=== PATIENT | female | born 1980 | race Caucasian/White ===

== ENCOUNTER 2023-01-18 18:53 | Emergency (ER) | payer SELFPAY ==
[2023-01-18 20:34] LABS: Basophils % (A) 0 %; Eosinophils % (A) 0 %; HCT 42.3 % (34.0-46.0); Hypochromasia Slight; Lymphocytes # (A) 1.2 k/uL (1.0-4.8); Lymphocytes % (A) 15 %; MCH 24.7 pg (25.0-35.0); MCHC 30.7 g/dL (31.0-37.0); MCV 80.2 fL (80.0-100.0); Mean Platelet Volume 7.3; Monocytes # (A) 0.3 k/uL (0-1.0); Monocytes % (A) 4 %; Neutrophils # (A) 6.6 k/uL (1.3-7.7); Neutrophils % (A) 80 %; Platelet Count 403 k/uL (150-450); RBC 5.27 m/uL (3.80-5.40); RDW 14.6 % (11.5-15.5); WBC 8.2 k/uL (3.8-10.6)
[2023-01-18 20:50] LABS: ALT 17 U/L (4-34); AST 23 U/L (14-36); African American GFR (CKD) >90 (>60 ml/min/1.73 sqM); Albumin 4.5 g/dL (3.5-5.0); Alkaline Phosphatase 66 U/L (38-126); Amylase 67 U/L (30-110); Anion Gap 11 mmol/L; Blood Urea Nitrogen 7 mg/dL (7-17); Carbon Dioxide 20 mmol/L (22-30); Chloride 105 mmol/L (98-107); Glucose 131 mg/dL (74-99); Lipase 154 U/L (23-300); Non-African American GFR(CKD) >90 (>60 ml/min/1.73 sqM); Potassium 4.2 mmol/L (3.5-5.1); Sodium 136 mmol/L (137-145); Total Bilirubin 0.4 mg/dL (0.2-1.3); Total Protein 8.1 g/dL (6.3-8.2)
[2023-01-18 20:54] LABS: Appearance,Urine Cloudy (Clear); Bacteria,Urine Few /hpf; Bilirubin,Urine Negative (Negative); Blood,Urine Negative (Negative); Color,Urine Light Yellow; Glucose,Urine (UA) Negative (Negative); Ketones,Urine 1+ (Negative); Leukocyte Esterase,Urine Large (Negative); Mucus,Urine Rare /hpf; Nitrite,Urine Negative (Negative); Protein,Urine Trace (Negative); RBC,Urine 4 /hpf (0-5); Specific Gravity,Urine 1.009 (1.001-1.035); Squamous Epithelial Cell,Urine 10 /hpf (0-4); Urobilinogen,Urine <2.0 mg/dL (<2.0); WBC,Urine 66 /hpf (0-5)
--- NOTE | 2023-01-18 21:59 | US ---
EXAMINATION TYPE: US abdomen complete DATE OF EXAM: 01/18/2023 COMPARISON: NONE CLINICAL INDICATION: Female, 42 years old with history of right abdominal pain; pain and nausea TECHNIQUE: Multiple sonographic images of the abdomen are obtained. FINDINGS: EXAM MEASUREMENTS: Liver Length: 17 cm Gallbladder Wall: 0.2 cm CBD: 0.4 cm Spleen: 10.1 cm Right Kidney: 10.9 x 4.5 x 4.3 cm Left Kidney: 10.4 x 4.1 x 5.4 cm PIPE SMOKING MACHINE OPERATOR NOTES: Pancreas: Obscured by bowel gas and mass. Liver: Increased attenuation. Hypoechoic lesion noted measuring 2.6 x 1.3 x 2.3 cm. With posterior a coustic enhancement, likely hepatic cyst. Gallbladder: No stones seen Evidence for sonographic Sutton's sign: No CBD: wnl Spleen: wnl Right Kidney: Moderate hydronephrosis. Left Kidney: Moderate hydronephrosis. Upper IVC: wnl Abd Aorta: wnl Large solid mass at the midline abdomen measuring 19.4 x 17.5 x 20 cm. Mass demonstrates areas of int ernal vascularity and heterogeneous echotexture. IMPRESSION: 1. Large midline abdominal soft tissue mass measuring up to 20 cm. Further evaluation with contrast-e nhanced CT abdomen/pelvis is recommended. 2. Bilateral moderate hydronephrosis, likely secondary to extrinsic compression from finding #1. 3. Hepatic steatosis.
[2023-01-18 23:44] VITALS: RESP 16
--- NOTE | 2023-01-18 23:54 | CT ---
EXAM: CT Abdomen and Pelvis With Intravenous Contrast CLINICAL HISTORY: ITS.REASON CT Reason: evaluate mass TECHNIQUE: Axial computed tomography images of the abdomen and pelvis with intravenous contrast. CTDI is 31.6 mGy and DLP is 1834.9 mGy-cm. This CT exam was performed using one or more of the following dose reduction techniques: automated exposure control, adjustment of the mA and/or kV according to patient size, and/or use of iterative reconstruction technique. COMPARISON: No relevant prior studies available. FINDINGS: Lung bases: Unremarkable. No mass. No consolidation. ABDOMEN: Liver: Several low densities in the liver measuring up to 2.7 cm consistent with simple cysts. Gallbladder and bile ducts: Unremarkable. No calcified stones. No ductal dilation. Pancreas: Unremarkable. No mass. No ductal dilation. Spleen: Unremarkable. No splenomegaly. Adrenals: Unremarkable. No mass. Kidneys and ureters: Massively enlarged uterus causes moderate bilateral hydronephrosis and hydroureter. Stomach and bowel: Small periumbilical hernia with small bowel protruding through the defect causing at least partial bowel obstruction. No mucosal thickening. PELVIS: Appendix: No findings to suggest acute appendicitis. Bladder: Unremarkable. No mass. Reproductive: Massive enlargement of the uterus measuring 30 cm craniocaudal by 15 cm transverse by 28 cm transverse with numerous large myometrial masses most likely representing uterine fibroids. ABDOMEN and PELVIS: Intraperitoneal space: Mild ascites. No free air. Bones/joints: No acute fracture. No dislocation. Soft tissues: See above. Vasculature: Unremarkable. No abdominal aortic aneurysm. Lymph nodes: Unremarkable. No enlarged lymph nodes. IMPRESSION: 1. Small periumbilical hernia with small bowel protruding through the defect causing at least partial bowel obstruction. 2. Massive enlargement of the uterus measuring 30 cm craniocaudal by 15 cm transverse by 28 cm transverse with numerous large myometrial masses most likely representing uterine fibroids and causes moderate bilateral hydronephrosis and hydroureter.
[2023-01-19] MEDS ORDERED: cefTRIAXone IN SWFI 1,000 MG/10 ML SYRINGE IVP STA (00:12)
[2023-01-19] MEDS ORDERED: MORPHINE SULFATE 4 MG/ML SYRINGE IV STA (00:12)
--- NOTE | 2023-01-19 00:23 | ED ---
Abdominal Pain HPI - General Chief Complaint: Abdominal Pain Stated Complaint: Abd Pain Time Seen by Provider: 01/18/23 19:58 Source: patient Mode of arrival: ambulatory Limitations: no limitations - History of Present Illness Initial Comments: This patient is a 42-year-old woman presenting with lower abdominal pain worse for past few hours however she has had intermittent episodes of pain previously. Pain sharp. She has not noted worsening or relieving factors. MD Complaint: abdominal pain -: hour(s) Location: LLQ, RLQ Radiation: none Migration to: no migration Severity: severe Quality: sharp Consistency: intermittent Improves With: nothing Worsens With: nothing Associated Symptoms: denies other symptoms - Related Data Previous Rx's Medication Instructions Recorded HYDROcodone/APAP 5-325MG [[place] 1 tab PO Q4HR PRN 3 Days #18 tab 01/19/23 5-325] Allergies Allergy/AdvReac Type Severity Reaction Status Date / Time No Known Allergies Allergy Verified 01/18/23 19:26 Review of Systems ROS Statement: Those systems with pertinent positive or pertinent negative responses have been documented in the HPI. ROS Other: All systems not noted in ROS Statement are negative. Constitutional: Denies: fever, chills Respiratory: Denies: cough, dyspnea Cardiovascular: Denies: chest pain, palpitations Gastrointestinal: Reports: abdominal pain. Denies: nausea, vomiting, diarrhea, constipation, melena, hematochezia Genitourinary: Denies: dysuria, frequency, hematuria Musculoskeletal: Denies: back pain Skin: Denies: rash Neurological: Denies: headache, weakness Past Medical History Past Medical History: No Reported History History of Any Multi-Drug Resistant Organisms: None Reported Past Surgical History: No Surgical Hx Reported Past Psychological History: Anxiety, Depression Smoking Status: Never smoker Past Alcohol Use History: None Reported Past Drug Use History: Marijuana General Exam Limitations: no limitations General appearance: alert, in no apparent distress Head exam: Present: atraumatic, normocephalic Eye exam: Present: normal appearance. Absent: scleral icterus, conjunctival injection Neck exam: Present: normal inspection Respiratory exam: Present: normal lung sounds bilaterally. Absent: respiratory distress, wheezes, rales, rhonchi, stridor Cardiovascular Exam: Present: regular rate, normal rhythm, normal heart sounds. Absent: systolic murmur, diastolic murmur, rubs, gallop GI/Abdominal exam: Present: soft, mass (The patient has palpable lower abdominal mass, palpation does reproduce patient's pain). Absent: distended, tenderness, guarding, rebound, rigid, pulsatile mass, hernia Extremities exam: Present: normal inspection, normal capillary refill. Absent: pedal edema, calf tenderness Back exam: Present: normal inspection. Absent: CVA tenderness (R), CVA tenderness (L) Neurological exam: Present: alert Skin exam: Present: warm, dry, intact, normal color. Absent: rash Course Vital Signs 01/18/23 01/18/23 01/18/23 19:21 20:20 23:43 Temperature 98.9 F Pulse Rate 108 H 101 H 94 Respiratory 16 18 16 Rate Blood Pressure 147/73 143/94 138/73 O2 Sat by Pulse 98 98 95 Oximetry 01/19/23 00:40 Temperature 97.8 F Pulse Rate 81 Respiratory 16 Rate Blood Pressure 130/78 O2 Sat by Pulse 97 Oximetry Medical Decision Making - Medical Decision Making The patient had CT of the abdomen and pelvis which I interpreted as showing la rge uterine mass. No free air or obstruction. Was pt. sent in by a medical professional or institution (, PA, HAND ORNAMENT MAKER, urgent care, hospital, or skilled nursing...) When possible be specific @ -[No] Did you speak to anyone other than the patient for history (EMS, parent, family, police, friend...)? What history was obtained from this source @ -[No] Did you review nursing and triage notes (agree or disagree)? Why? @ -[I reviewed and agree with nursing and triage notes] Were old charts reviewed (outside hosp., previous admission, EMS record, old EKG, old radiological studies, urgent care reports/EKG's, skilled nursing records)? Report findings @ -[No old charts were reviewed] Differential Diagnosis (chest pain, altered mental status, abdominal pain women, abdominal pain men, vaginal bleeding, weakness, fever, dyspnea, syncope, headache, dizziness, GI bleed, back pain, seizure, CVA, palpatations, mental health, musculoskeletal)? @ -[Differential Abdominal Pain Women: Appendicitis, Cholecystitis, diverticulosis, ischemic bowel, pancreatitis, hepatitis, UTI, gastroenteritis, AAA, incarcerated hernia, bowel obstruction, constipation, inflammatory bowel, hepatitis, peptic ulcer disease, splenic infa rction, perforated viscus, vulvitis, ovarian torsion, PID, kidney stone, placenta abruption, this is not meant to be an all-inclusive list EKG interpreted by me (3pts min.). @ -[ X-rays interpreted by me (1pt min.). @ -[None done] CT interpreted by me (1pt min.). @ -[As above U/S interpreted by me (1pt. min.). @ -[None done] What testing was considered but not performed or refused? (CT, X-rays, U/S, labs)? Why? @ -[None] What meds were considered but not given or refused? Why? @ -[None] Did you discuss the management of the patient with other professionals (professionals i.e. , PA, HAND ORNAMENT MAKER, lab, RT, psych nurse, social worker health services, director social service, teacher, ordnance corps officer, director of casework department)? Give summary @ -[I discussed the case with the on-call information engineer Was smoking cessation discussed for >3mins.? @ -[No] Was critical care preformed (if so, how long)? @ -[No] Were there social determinants of health that impacted care today? How? (Homelessness, low income, unemployed, alcoholism, drug addiction, transportation, low edu. Level, literacy, decrease access to med. care, retirement, rehab)? @ -[No] Was there de-escalation of care discussed even if they declined (Discuss DNR or withdrawal of care, Hospice)? DNR status @ -[No] What co-morbidities impacted this encounter? (DM, HTN, Smoking, COPD, CAD, Cancer, CVA, ARF, Chemo, Hep., AIDS, mental health diagnosis, sleep apnea, morbid obesity)? @ -[None] Was patient admitted / discharged? Hospital course, mention meds given and route, prescriptions, significant lab abnormalities, going to OR and other pertinent info. @ -[Patient is a 42-year-old woman here for acute abdominal pain, or further questioning reveals she had had previous episodes of pain. The exam reveals lower abdominal mass and the patient had first ultrasound interpreted by radiology and then computed tomography scan showing large uterine mass. I discussed the case with Dr. Joya, and he would like to have the patient call his office to establish a referral for care at [facility]. as the mass is too large for resection at this facility. Undiagnosed new problem with uncertain prognosis? @ -[No] Drug Therapy requiring intensive monitoring for toxicity (Heparin, Nitro, Insulin, Cardizem)? @ -[No] Were any procedures done? @ -[No] Diagnosis/symptom? @ -[Acute abdominal pain secondary to large uterine mass which is new diagnosis Acute, or Chronic, or Acute on Chronic? @ -[Acute Uncomplicated (without systemic symptoms) or Complicated (systemic symptoms)? @ -[Uncomplicated Side effects of treatment? @ -[No] Exacerbation, Progression, or Severe Exacerbation? @ -[No] Poses a threat to life or bodily function? How? (Chest pain, [place], [place], pneumonia, PE, COPD, DKA, ARF, appy, cholecystitis, CVA, Diverticulitis, Homicidal, Suicidal, threat to staff... and all critical care pts) @ -[No] - Lab Data Result diagrams: 01/18/23 20:20 01/18/23 20:20 Lab Results 01/18/23 01/18/23 01/18/23 Range/Units 20:20 20:20 20:20 WBC 8.2 (3.8-10.6) k/uL RBC 5.27 (3.80-5.40) m/uL Hgb 13.0 (11.4-16.0) gm/dL Hct 42.3 (34.0-46.0) % MCV 80.2 (80.0-100.0) fL MCH 24.7 L (25.0-35.0) pg MCHC 30.7 L (31.0-37.0) g/dL RDW 14.6 (11.5-15.5) % Plt Count 403 (150-450) k/uL MPV 7.3 Neutrophils % 80 % Lymphocytes % 15 % Monocytes % 4 % Eosinophils % 0 % Basophils % 0 % Neutrophils # 6.6 (1.3-7.7) k/uL Lymphocytes # 1.2 (1.0-4.8) k/uL Monocytes # 0.3 (0-1.0) k/uL Eosinophils # 0.0 (0-0.7) k/uL Basophils # 0.0 (0-0.2) k/uL Hypochromasia Slight Sodium 136 L (137-145) mmol/L Potassium 4.2 (3.5-5.1) mmol/L Chloride 105 (98-107) mmol/L Carbon Dioxide 20 L (22-30) mmol/L Anion Gap 11 mmol/L BUN 7 (7-17) mg/dL Creatinine 0.60 (0.52-1.04) mg/dL Est GFR (CKD-EPI)AfAm >90 (>60 ml/min/1.73 sqM) Est GFR (CKD-EPI)NonAf >90 (>60 ml/min/1.73 sqM) Glucose 131 H (74-99) mg/dL Calcium 9.0 (8.4-10.2) mg/dL Total Bilirubin 0.4 (0.2-1.3) mg/dL AST 23 (14-36) U/L ALT 17 (4-34) U/L Alkaline Phosphatase 66 (38-126) U/L Total Protein 8.1 (6.3-8.2) g/dL Albumin 4.5 (3.5-5.0) g/dL Amylase 67 (30-110) U/L Lipase 154 (23-300) U/L HCG, Qual Urine Color Urine Appearance (Clear) Urine pH (5.0-8.0) Ur Specific [place] (1.001-1.035) Urine Protein (Negative) Urine Glucose (UA) (Negative) Urine Ketones (Negative) Urine Blood (Negative) Urine Nitrite (Negative) Urine Bilirubin (Negative) Urine Urobilinogen (<2.0) mg/dL Ur Leukocyte Esterase (Negative) Urine RBC (0-5) /hpf Urine WBC (0-5) /hpf Urine WBC Clumps (None) /hpf Ur Squamous Epith Cells (0-4) /hpf Urine Bacteria (None) /hpf Urine Mucus (None) /hpf Urine HCG, Qual Not Detected (Not Detectd) 01/18/23 01/18/23 Range/Units 20:20 20:20 WBC (3.8-10.6) k/uL RBC (3.80-5.40) m/uL Hgb (11.4-16.0) gm/dL Hct (34.0-46.0) % MCV (80.0-100.0) fL MCH (25.0-35.0) pg MCHC (31.0-37.0) g/dL RDW (11.5-15.5) % Plt Count (150-450) k/uL MPV Neutrophils % % Lymphocytes % % Monocytes % % Eosinophils % % Basophils % % Neutrophils # (1.3-7.7) k/uL Lymphocytes # (1.0-4.8) k/uL Monocytes # (0-1.0) k/uL Eosinophils # (0-0.7) k/uL Basophils # (0-0.2) k/uL Hypochromasia Sodium (137-145) mmol/L Potassium (3.5-5.1) mmol/L Chloride (98-107) mmol/L Carbon Dioxide (22-30) mmol/L Anion Gap mmol/L BUN (7-17) mg/dL Creatinine (0.52-1.04) mg/dL Est GFR (CKD-EPI)AfAm (>60 ml/min/1.73 sqM) Est GFR (CKD-EPI)NonAf (>60 ml/min/1.73 sqM) Glucose (74-99) mg/dL Calcium (8.4-10.2) mg/dL Total Bilirubin (0.2-1.3) mg/dL AST (14-36) U/L ALT (4-34) U/L Alkaline Phosphatase (38-126) U/L Total Protein (6.3-8.2) g/dL Albumin (3.5-5.0) g/dL Amylase (30-110) U/L Lipase (23-300) U/L HCG, Qual Not Detected Urine Color Light Yellow Urine Appearance Cloudy H (Clear) Urine pH 7.0 (5.0-8.0) Ur Specific [place] 1.009 (1.001-1.035) Urine Protein Trace H (Negative) Urine Glucose (UA) Negative (Negative) Urine Ketones 1+ H (Negative) Urine Blood Negative (Negative) Urine Nitrite Negative (Negative) Urine Bilirubin Negative (Negative) Urine Urobilinogen <2.0 (<2.0) mg/dL Ur Leukocyte Esterase Large H (Negative) Urine RBC 4 (0-5) /hpf Urine WBC 66 H (0-5) /hpf Urine WBC Clumps Few H (None) /hpf Ur Squamous Epith Cells 10 H (0-4) /hpf Urine Bacteria Few H (None) /hpf Urine Mucus Rare H (None) /hpf Urine HCG, Qual (Not Detectd) Disposition Clinical Impression: Abdominal pain, Uterine mass Disposition: HOME SELF-CARE Condition: Fair Instructions (If sedation given, give patient instructions): Abdominal Pain (ED) Prescriptions: HYDROcodone/APAP 5-325MG [[place] 5-325] 1 tab PO Q4HR PRN 3 Days #18 tab PRN Reason: Pain Is patient prescribed a controlled substance at d/c from ED?: Yes Referrals: Jessika Frost DO [Primary Care Provider] - 1-2 days Ej Joya MD [STAFF PHYSICIAN] - 1-2 days
[2023-01-19 00:41] VITALS: BP 130/78; PULSE 81; TEMP 97.8
== END 2023-01-19 00:41 | disposition home or self-care (01) ==
LOC: EC 18:53
DX: K56.600 Partial intestinal obstruction, unspecified as to cause (principal); K42.9 Umbilical hernia without obstruction or gangrene; K76.0 Fatty (change of) liver, not elsewhere classified; F12.90 Cannabis use, unspecified, uncomplicated; Z86.59 Personal history of other mental and behavioral disorders
CPT/HCPCS: 36415; 80053; 82150; 83690; 85025; 81001; 81025; 84703; 76700; 74177; 99284; 96374; 96375; J2270; J0696; Q9967

== ENCOUNTER 2023-04-16 23:11 | Emergency (ER) | payer OTHER ==
[2023-04-16 23:30] VITALS: RESP 18; TEMP 98.1
[2023-04-17] MEDS ORDERED: ONDANSETRON 4 MG/2 ML VIAL IVP STA (00:19)
[2023-04-17] MEDS ORDERED: MORPHINE SULFATE 4 MG/ML SYRINGE IVP STA (00:19)
--- NOTE | 2023-04-17 01:13 | ED ---
General Adult HPI - General Chief complaint: Abdominal Pain Stated complaint: Abdominal Pain, Vomiting Time Seen by Provider: 04/16/23 23:41 Source: patient, RN notes reviewed Mode of arrival: ambulatory Limitations: no limitations - History of Present Illness Initial comments: 42-year-old female with a past medical history significant for uterine fibroids presents the emergency department with a chief complaint of lower abdominal pain. Patient reports she has a history of uterine fibroids however is unable to be scheduled for a hysterectomy due to not having insurance. She reports worsening pain that started approximately 08 30 this morning. She has been taking Vicodin at home with mild symptomatic relief. She is also complaining of accompanying nausea secondary to pain. She denies any known fevers, chills, dysuria, hematuria, vaginal bleeding, vaginal discharge, low back pain. - Related Data Previous Rx's Medication Instructions Recorded HYDROcodone/APAP 5-325MG [[place] 1 tab PO Q4HR PRN 3 Days #18 tab 01/19/23 5-325] Allergies Allergy/AdvReac Type Severity Reaction Status Date / Time No Known Allergies Allergy Verified 04/16/23 23:29 Review of Systems ROS Statement: Those systems with pertinent positive or pertinent negative responses have been documented in the HPI. ROS Other: All systems not noted in ROS Statement are negative. Past Medical History Past Medical History: No Reported History Additional Past Medical History / Comment(s): uterine fibroid History of Any Multi-Drug Resistant Organisms: None Reported Past Surgical History: No Surgical Hx Reported Past Psychological History: Anxiety, Depression Smoking Status: Never smoker Past Alcohol Use History: None Reported Past Drug Use History: Marijuana General Exam - General Exam Comments Initial Comments: General: Alert, in no acute distress Head: atraumatic normocephalic. Eyes PERRL, EOMI intact, mucous membranes moist Respiratory: Lungs clear to auscultation bilaterally Cardiovascular: Heart rate regular rate and rhythm Abdominal: Soft without guarding or rebound Extremities: Normal inspection with full range of motion and normal capillary refill Neuroogic: alert and oriented 3, CN II-XII intact, able to ambulate with steady gait Skin: warm dry and intact with normal color Limitations: no limitations Course Vital Signs 04/16/23 04/17/23 23:27 01:46 Temperature 98.1 F 98.1 F Pulse Rate 94 85 Respiratory 18 18 Rate Blood Pressure 138/64 107/79 O2 Sat by Pulse 99 97 Oximetry Medical Decision Making - Medical Decision Making Was pt. sent in by a medical professional or institution (, PA, COLOR SHOP HELPER, urgent care, hospital, or [place] health care facility...) When possible be specific @ -[No] Did you speak to anyone other than the patient for history (EMS, parent, family, police, friend...)? What history was obtained from this source @ -Mother Did you review nursing and triage notes (agree or disagree)? Why? @ -[I reviewed and agree with nursing and triage notes] Were old charts reviewed (outside hosp., previous admission, EMS record, old EKG, old radiological studies, urgent care reports/EKG's, [place] health care facility records)? Report findings @ -[No old charts were reviewed] Differential Diagnosis (chest pain, altered mental status, abdominal pain women, abdominal pain men, vaginal bleeding, weakness, fever, dyspnea, syncope, headache, dizziness, GI bleed, back pain, seizure, CVA, palpatations, mental health, musculoskeletal)? @ -[not applicable] EKG interpreted by me (3pts min.). @ -[As above] X-rays interpreted by me (1pt min.). @ -[None done] CT interpreted by me (1pt min.). @ -[None done] U/S interpreted by me (1pt. min.). @ -[None done] What testing was considered but not performed or refused? (CT, X-rays, U/S, labs)? Why? @ Laboratory studies and ultrasound were considered however patient describes her symptoms as chronic in nature and consistent with her uterine fibroids. Patient agreeable with the plan for pain management with discharge home What meds were considered but not given or refused? Why? @ -[None] Did you discuss the management of the patient with other professionals (prof meys i.e. , PA, COLOR SHOP HELPER, lab, RT, psych nurse, social media editor, shed workers supervisor, teacher, credit officer, casework specialist)? Give summary @ -[No] Was smoking cessation discussed for >3mins.? @ -[No] Was critical care preformed (if so, how long)? @ -[No] Were there social determinants of health that impacted care today? How? (Homelessness, low income, unemployed, alcoholism, drug addiction, transportation, low edu. Level, literacy, decrease access to med. care, alf, rehab)? @ -[No] Was there de-escalation of care discussed even if they declined (Discuss DNR or withdrawal of care, Hospice)? DNR status @ -[No] What co-morbidities impacted this encounter? (DM, HTN, Smoking, COPD, CAD, Cancer, CVA, ARF, Chemo, Hep., AIDS, mental health diagnosis, sleep apnea, morbid obesity)? @ -[None] Was patient admitted / discharged? Hospital course, mention meds given and route, prescriptions, significant lab abnormalities, going to OR and other pertinent info. @ Discharged. This is a pleasant 42-year-old female who presents the emergency department with lower abdominal pain. Patient had a thorough history and physical exam performed on the ED. Physical exam essentially unremarkable. Heart rate regular rate and rhythm, lungs are to auscultation bilaterally abdomen soft with mild lower suprapubic tenderness. Patient was offered laboratory and imaging studies however she declined at the time of evaluation. Patient was provided morphine and Zofran with symptomatic relief in the emergency department. Return precautions were discussed at length including fever, chills, vaginal bleeding, low back pain that develop. Case discussed with Dr. Montejo Devan who agrees with plan of care Undiagnosed new problem with uncertain prognosis? @ -[No] Drug Therapy requiring intensive monitoring for toxicity (Heparin, Nitro, Insulin, Cardizem)? @ -[No] Were any procedures done? @ -[No] Diagnosis/symptom? @ -Abdominal pain Acute, or Chronic, or Acute on Chronic? @ -Acute Uncomplicated (without systemic symptoms) or Complicated (systemic symptoms)? @ -Uncomplicated Side effects of treatment? @ -[No] Exacerbation, Progression, or Severe Exacerbation? @ -[No] Poses a threat to life or bodily function? How? (Chest pain, [place], [place], pneumonia, PE, COPD, DKA, ARF, appy, cholecystitis, CVA, Diverticulitis, Homicidal, Suicidal, threat to staff... and all critical care pts) @ -low likelihood Disposition Clinical Impression: Fibroid uterus, Abdominal pain Disposition: HOME SELF-CARE Condition: Stable Instructions (If sedation given, give patient instructions): Hysterectomy (DC), Endometrial Polyps (DC), Myomectomy (DC) Additional Instructions: Please monitor symptoms closely Please return to the nearest emergency department if worsening pain, fever, vaginal bleeding develops Is patient prescribed a controlled substance at d/c from ED?: No Referrals: Jessika Frost DO [REFERRING] - 1-2 days Time of Disposition: 01:12
[2023-04-17 01:57] VITALS: BP 107/79; PULSE 85
== END 2023-04-17 01:46 | disposition home or self-care (01) ==
LOC: EC 23:11
DX: D25.9 Leiomyoma of uterus, unspecified (principal); F12.90 Cannabis use, unspecified, uncomplicated
CPT/HCPCS: 99284; 96374; 96375; J2270; J2405

== ENCOUNTER 2023-04-18 05:32 | Emergency (ER) | payer OTHER ==
[2023-04-18] MEDS ORDERED: ONDANSETRON 4 MG/2 ML VIAL IVP STA (06:13)
[2023-04-18] MEDS ORDERED: KETOROLAC 15 MG/ML 1 ML VIAL IVP STA (06:13)
[2023-04-18] MEDS ORDERED: MORPHINE SULFATE 4 MG/ML SYRINGE IVP STA ×2 (06:13→10:29)
[2023-04-18] MEDS ORDERED: SODIUM CHLORIDE 0.9% 1,000 ML IV STA (06:13)
--- NOTE | 2023-04-18 06:27 | ED ---
Abdominal Pain HPI - General Chief Complaint: Abdominal Pain Stated Complaint: Abdominal pain Time Seen by Provider: 04/18/23 06:00 Source: patient, RN notes reviewed Mode of arrival: ambulatory Limitations: no limitations - History of Present Illness Initial Comments: This is a 43-year-old female who presents to the emergency department for abdominal pain. Patient has a substantial history of uterine fibroids. She was evaluated here 2 days ago for this, however due to lack of insurance at this time, she only requested pain medication and discharge home. However, states that the pain has continued to worsen. She did get a [place] prescription a few months ago that she's been trying to make last, however she reports that she's now experiencing nausea and vomiting, as well as constipation and pain going around to the right side of the back. They are planning to have Dr. Alexandra, gynecology oncology perform a hysterectomy as soon as she gets insurance due to the size of the uterus and the fibroids. Patient feels like she would like to proceed with more of a workup at this time due to the worsening symptoms. She has also started to notice redness and warmth on the outside of her abdomen around the umbilicus, which has never happened before either. Denies any fevers, chills, sore throat, cough, dyspnea, chest pain, palpitati ons, diarrhea, or headaches. MD Complaint: abdominal pain - Related Data Previous Rx's Medication Instructions Recorded HYDROcodone/APAP 5-325MG [[place] 1 tab PO Q4HR PRN 3 Days #18 tab 01/19/23 5-325] Allergies Allergy/AdvReac Type Severity Reaction Status Date / Time No Known Allergies Allergy Verified 04/18/23 05:35 Review of Systems ROS Statement: Those systems with pertinent positive or pertinent negative responses have been documented in the HPI. ROS Other: All systems not noted in ROS Statement are negative. Past Medical History Past Medical History: No Reported History Additional Past Medical History / Comment(s): uterine fibroid History of Any Multi-Drug Resistant Organisms: None Reported Past Surgical History: No Surgical Hx Reported Past Psychological History: Anxiety, Depression Smoking Status: Never smoker Past Alcohol Use History: None Reported Past Drug Use History: Marijuana General Exam Limitations: no limitations General appearance: alert, in no apparent distress Head exam: Present: atraumatic, normocephalic, normal inspection Respiratory exam: Present: normal lung sounds bilaterally. Absent: respiratory distress, wheezes, rales, rhonchi, stridor Cardiovascular Exam: Present: regular rate, normal rhythm, normal heart sounds. Absent: systolic murmur, diastolic murmur, rubs, gallop, clicks GI/Abdominal exam: Present: other (Palpable firm mass underneath the umbilicus. There is an area of erythema and increased warmth surrounding this area as well. Overlying tenderness.) Neurological exam: Present: alert, oriented X3, CN II-XII intact Psychiatric exam: Present: normal affect, normal mood Skin exam: Present: warm, dry, intact Course Vital Signs 04/18/23 04/18/23 04/18/23 05:33 06:35 07:15 Temperature 98.7 F Pulse Rate 108 H 95 86 Respiratory 18 19 16 Rate Blood Pressure 131/56 115/52 106/58 O2 Sat by Pulse 99 98 98 Oximetry 04/18/23 04/18/23 04/18/23 09:00 10:00 11:07 Temperature 98.9 F Pulse Rate 75 98 90 Respiratory 20 20 20 Rate Blood Pressure 100/60 134/48 134/50 O2 Sat by Pulse 98 96 98 Oximetry Medical Decision Making - Medical Decision Making This is a 43-year-old female who presents to the emergency department for abdominal pain. Was pt. sent in by a medical professional or institution? @ -No Did you speak to anyone other than the patient for history? @ -No Did you review nursing and triage notes? @ -Yes, and I agree, it is accurate with regards to the patient's symptoms. Were old charts reviewed? @ -No Differential Diagnosis? @ -Differential Abdominal Pain Women: Appendicitis, Cholecystitis, diverticulosis, ischemic bowel, pancreatitis, hepatitis, UTI, gastroenteritis, AAA, incarcerated hernia, bowel obstruction, constipation, inflammatory bowel, hepatitis, peptic ulcer disease, splenic infarction, perforated viscus, vulvitis, ovarian torsion, PID, kidney stone, placenta abruption, this is not meant to be an all-inclusive list EKG interpreted by me (3pts min.)? @ -Not obtained X-rays interpreted by me (1pt min.)? @ -Not obtained CT interpreted by me (1pt min.)? @ -Computed tomography scan of the abdomen and pelvis obtained. My interpretation identifies a very large fibroid uterus and umbilical hernia. U/S interpreted by me (1pt. min.)? @ -Not obtained What testing was considered but not performed? (CT, X-rays, U/S, labs)? Why? @ -None What meds were considered but not given? Why? @ -None Did you discuss the management of the patient with other professionals? @ -Yes, Dr. Campos, ED attending at [facility], who accepts the patient as ED to ED transfer. Did you reconcile home meds? @ -No Was smoking cessation discussed for >3mins.? @ -No Was critical care preformed (if so, how long)? @ -No Were there social determinants of health that impacted care today? How? (Homelessness, low income, unemployed, alcoholism, drug addiction, transportation, low edu. Level, literacy, decrease access to med. care, longterm, rehab)? @ -No Was there de-escalation of care discussed even if they declined? (Discuss DNR or withdrawal of care, Hospice)? @ -No What co-morbidities impacted this encounter? (DM, HTN, Smoking, COPD, CAD, Cancer, CVA, Hep., AIDS, mental health diagnosis, sleep apnea, morbid obesity)? @ -Uterine fibroid Was patient admitted / discharged? @ -Lab work obtained revealing leukocytosis with a white blood cell count of 11.9. CRP also elevated at 14.1. Computed tomography scan of the abdomen and pelvis obtained redemonstrating the massive fibroid uterus measuring up to 30 cm. She does also have an umbilical hernia causing at least partial bowel obstruction. This was evident on prior imaging, however it now has associated inflammatory changes and fat stranding concerning for incarceration. The hernia is palpable and not reducible on examination. She also has overlying skin changes of erythema and warmth. I spoke with on-call general surgery, Dr. Cohn. He advised that given the substantial nature of her fibroid uterus, he is not comfortable managing this here, and he advised she be transferred out to [facility] where Dr. Alexandra, Telescope Operator/Onc is able to evaluate her as well if needed. Patient accepted as ED to ED transfer at [facility]. Dr. Campos is the accepting ED physician. Blood cultures were obtained and she w as given a dose of Zosyn in the emergency department prior to transfer. Undiagnosed new problem with uncertain prognosis? @ -None Drug Therapy requiring intensive monitoring for toxicity (Heparin, Nitro, Insulin, Cardizem)? @ -None Were any procedures done? @ -None Diagnosis/symptom? @ -Incarcerated umbilical hernia Acute, or Chronic, or Acute on Chronic? @ -Acute Uncomplicated (without systemic symptoms) or Complicated (systemic symptoms)? @ -Complicated Side effects of treatment? @ -None Exacerbation, Progression, or Severe Exacerbation] @ -Not applicable Poses a threat to life or bodily function? @ -Yes This case was discussed in detail with the attending ED physician, Dr. Mcnulty. Presentation, findings, and treatment plan discussed in detail as well. - Lab Data Result diagrams: 04/18/23 06:22 04/18/23 06:22 Lab Results 04/18/23 04/18/23 04/18/23 Range/Units 06:22 06:22 06:22 WBC 11.9 H (3.8-10.6) k/uL RBC 5.24 (3.80-5.40) m/uL Hgb 12.9 (11.4-16.0) gm/dL Hct 42.0 (34.0-46.0) % MCV 80.2 (80.0-100.0) fL MCH 24.7 L (25.0-35.0) pg MCHC 30.8 L (31.0-37.0) g/dL RDW 14.9 (11.5-15.5) % Plt Count 385 (150-450) k/uL MPV 7.5 Neutrophils % 84 % Lymphocytes % 7 % Monocytes % 6 % Eosinophils % 2 % Basophils % 0 % Neutrophils # 10.0 H (1.3-7.7) k/uL Lymphocytes # 0.9 L (1.0-4.8) k/uL Monocytes # 0.7 (0-1.0) k/uL Eosinophils # 0.2 (0-0.7) k/uL Basophils # 0.0 (0-0.2) k/uL Hypochromasia Slight Sodium (137-145) mmol/L Potassium (3.5-5.1) mmol/L Chloride (98-107) mmol/L Carbon Dioxide (22-30) mmol/L Anion Gap mmol/L BUN (7-17) mg/dL Creatinine (0.52-1.04) mg/dL Est GFR (CKD-EPI)AfAm (>60 ml/min/1.73 sqM) Est GFR (CKD-EPI)NonAf (>60 ml/min/1.73 sqM) Glucose (74-99) mg/dL Plasma Lactic Acid Jovanny (0.7-2.0) mmol/L Calcium (8.4-10.2) mg/dL Total Bilirubin (0.2-1.3) mg/dL AST (14-36) U/L ALT (4-34) U/L Alkaline Phosphatase (38-126) U/L C-Reactive Protein (<1.0) mg/dL Total Protein (6.3-8.2) g/dL Albumin (3.5-5.0) g/dL Amylase (30-110) U/L Lipase (23-300) U/L HCG, Qual Urine Color Yellow Urine Appearance Cloudy H (Clear) Urine pH 6.0 (5.0-8.0) Ur Specific [place] 1.030 (1.001-1.035) Urine Protein 1+ H (Negative) Urine Glucose (UA) Negative (Negative) Urine Ketones 2+ H (Negative) Urine Blood Moderate H (Negative) Urine Nitrite Negative (Negative) Urine Bilirubin Negative (Negative) Urine Urobilinogen <2.0 (<2.0) mg/dL Ur Leukocyte Esterase Large H (Negative) Urine RBC 8 H (0-5) /hpf Urine WBC 4 (0-5) /hpf Ur Squamous Epith Cells 8 H (0-4) /hpf Amorphous Sediment Rare H (None) /hpf Urine Mucus Many H (None) /hpf Urine HCG, Qual Not Detected (Not Detectd) 04/18/23 04/18/23 04/18/23 Range/Units 06:22 06:22 06:22 WBC (3.8-10.6) k/uL RBC (3.80-5.40) m/uL Hgb (11.4-16.0) gm/dL Hct (34.0-46.0) % MCV (80.0-100.0) fL MCH (25.0-35.0) pg MCHC (31.0-37.0) g/dL RDW (11.5-15.5) % Plt Count (150-450) k/uL MPV Neutrophils % % Lymphocytes % % Monocytes % % Eosinophils % % Basophils % % Neutrophils # (1.3-7.7) k/uL Lymphocytes # (1.0-4.8) k/uL Monocytes # (0-1.0) k/uL Eosinophils # (0-0.7) k/uL Basophils # (0-0.2) k/uL Hypochromasia Sodium 136 L (137-145) mmol/L Potassium 4.4 (3.5-5.1) mmol/L Chloride 102 (98-107) mmol/L Carbon Dioxide 23 (22-30) mmol/L Anion Gap 11 mmol/L BUN 14 (7-17) mg/dL Creatinine 0.72 (0.52-1.04) mg/dL Est GFR (CKD-EPI)AfAm >90 (>60 ml/min/1.73 sqM) Est GFR (CKD-EPI)NonAf >90 (>60 ml/min/1.73 sqM) Glucose 123 H (74-99) mg/dL Plasma Lactic Acid Jovanny 1.3 (0.7-2.0) mmol/L Calcium 9.4 (8.4-10.2) mg/dL Total Bilirubin 1.1 (0.2-1.3) mg/dL AST 19 (14-36) U/L ALT 13 (4-34) U/L Alkaline Phosphatase 72 (38-126) U/L C-Reactive Protein 14.1 H (<1.0) mg/dL Total Protein 7.9 (6.3-8.2) g/dL Albumin 4.4 (3.5-5.0) g/dL Amylase 72 (30-110) U/L Lipase 114 (23-300) U/L HCG, Qual Not Detected Urine Color Urine Appearance (Clear) Urine pH (5.0-8.0) Ur Specific [place] (1.001-1.035) Urine Protein (Negative) Urine Glucose (UA) (Negative) Urine Ketones (Negative) Urine Blood (Negative) Urine Nitrite (Negative) Urine Bilirubin (Negative) Urine Urobilinogen (<2.0) mg/dL Ur Leukocyte Esterase (Negative) Urine RBC (0-5) /hpf Urine WBC (0-5) /hpf Ur Squamous Epith Cells (0-4) /hpf Amorphous Sediment (None) /hpf Urine Mucus (None) /hpf Urine HCG, Qual (Not Detectd) - Radiology Data Radiology results: report reviewed, image reviewed Disposition Clinical Impression: Incarcerated umbilical hernia, Fibroid uterus Disposition: OTHER INSTITUTION NOT DEFINED Referrals: Barbara Lopez DO [Primary Care Provider] - 1-2 days - Out of Hospital Transfer - Req. Specs Out of Hospital Transfer - Requested Specifics: Other Emergency Center ([facility])
[2023-04-18 06:41] LABS: Basophils % (A) 0 %; Eosinophils # (A) 0.2 k/uL (0-0.7); Eosinophils % (A) 2 %; HGB 12.9 gm/dL (11.4-16.0); Hypochromasia Slight; Lymphocytes # (A) 0.9 k/uL (1.0-4.8); Lymphocytes % (A) 7 %; MCH 24.7 pg (25.0-35.0); MCHC 30.8 g/dL (31.0-37.0); MCV 80.2 fL (80.0-100.0); Mean Platelet Volume 7.5; Monocytes # (A) 0.7 k/uL (0-1.0); Monocytes % (A) 6 %; Neutrophils % (A) 84 %; Platelet Count 385 k/uL (150-450); RBC 5.24 m/uL (3.80-5.40); RDW 14.9 % (11.5-15.5); WBC 11.9 k/uL (3.8-10.6)
[2023-04-18 06:53] LABS: ALT 13 U/L (4-34); AST 19 U/L (14-36); African American GFR (CKD) >90 (>60 ml/min/1.73 sqM); Albumin 4.4 g/dL (3.5-5.0); Alkaline Phosphatase 72 U/L (38-126); Amylase 72 U/L (30-110); Anion Gap 11 mmol/L; Blood Urea Nitrogen 14 mg/dL (7-17); Calcium 9.4 mg/dL (8.4-10.2); Carbon Dioxide 23 mmol/L (22-30); Chloride 102 mmol/L (98-107); Glucose 123 mg/dL (74-99); Lipase 114 U/L (23-300); Non-African American GFR(CKD) >90 (>60 ml/min/1.73 sqM); Potassium 4.4 mmol/L (3.5-5.1); Sodium 136 mmol/L (137-145); Total Bilirubin 1.1 mg/dL (0.2-1.3); Total Protein 7.9 g/dL (6.3-8.2)
[2023-04-18 07:08] LABS: C Reactive Protein 14.1 mg/dL (<1.0)
[2023-04-18 07:46] LABS: Amorphous Sediment,Urine Rare /hpf; Appearance,Urine Cloudy (Clear); Bilirubin,Urine Negative (Negative); Blood,Urine Moderate (Negative); Color,Urine Yellow; Glucose,Urine (UA) Negative (Negative); Leukocyte Esterase,Urine Large (Negative); Mucus,Urine Many /hpf; Nitrite,Urine Negative (Negative); Protein,Urine 1+ (Negative); RBC,Urine 8 /hpf (0-5); Squamous Epithelial Cell,Urine 8 /hpf (0-4); Urobilinogen,Urine <2.0 mg/dL (<2.0); WBC,Urine 4 /hpf (0-5)
[2023-04-18 07:54] LABS: Ketones,Urine 2+ (Negative)
[2023-04-18 09:16] VITALS: RESP 20
--- NOTE | 2023-04-18 09:37 | CT ---
EXAMINATION TYPE: CT abdomen pelvis w con CT DLP: 1443.1 mGycm, Automated exposure control for dose reduction was used. DATE OF EXAM: 04/18/2023 7:34 AM COMPARISON: CT 01/18/2023 CLINICAL INDICATION:Female, 43 years old with history of Abdominal pain, acute, nonlocalized; lower a bdominal pain. hx of uterine fibroids TECHNIQUE: Axial CT of the abdomen and pelvis. Sagittal and coronal reformats were created on a [id number] workstation. Contrast used:86ml mL of Isovue 300 with IV Contrast, (none if empty) Oral contrast used: without Oral Contrast (none if empty) FINDINGS: LOWER CHEST: Unremarkable ABDOMEN LIVER: Few small hepatic hypodensities, grossly stable, likely cysts or hemangiomas. GALLBLADDER AND BILE DUCTS: Unremarkable. PANCREAS: Unremarkable. SPLEEN: Unremarkable. ADRENAL GLANDS: Unremarkable. KIDNEYS AND URETERS: Kidneys enhance symmetrically. There is mild to moderate bilateral hydroureteron ephrosis redemonstrated, probably related to the enlarged fibroid uterus. PELVIS BLADDER: Incompletely distended not well assessed. REPRODUCTIVE: Massively enlarged, heterogeneous uterus again noted, the superiormost extent again jamey r the level of the inferior liver. ABDOMEN & PELVIS STOMACH AND BOWEL: Nondistended stomach and proximal small bowel. Small duodenal diverticulum is seen . Mildly to moderately dilated mid small bowel loops again seen (up to 3.5 cm diameter), similar to p rior, associated with a 5.4 cm supraumbilical hernia which contains fluid and protruding bowel loop. This is similar in size to the prior, however there are increased inflammatory changes of the adjacen t fat. Stool and scattered diverticula throughout nondistended colon without focal inflammation seen. The presumed appendix appears within normal limits. PERITONEUM/RETROPERITONEUM: No evidence of pneumoperitoneum. Small amount of abdominal free fluid, mo stly perihepatic. VASCULATURE: No evidence of aortic aneurysm. MUSCULOSKELETAL: No acute osseous abnormality. Mild degenerative changes throughout the spine with mi ld upper lumbar levoscoliosis noted. LYMPH NODES: No gross evidence for lymphadenopathy. SOFT TISSUE/ABDOMINAL WALL: Otherwise unremarkable. IMPRESSION: 1. Mildly to moderately dilated mid small bowel loops again seen, similar to prior, associated with a 5.4 cm supraumbilical hernia which contains fluid and protruding bowel loop. This appears to cause at least partial obstruction. Hernia size is similar to prior, however there are increased inflammato ry changes of the adjacent fat which can be seen with inflammation/incarceration. Correlate clinicall y. 2. Mild to moderate bilateral hydroureteronephrosis redemonstrated, probably related to massively en larged fibroid uterus.
[2023-04-18 10:03] VITALS: TEMP 98.9
[2023-04-18] MEDS ORDERED: PIPERACILLIN-TAZOBACTAM 3.375 GM in SODIUM CHLORIDE 0.9% 100 ML IVPB STA (10:06)
[2023-04-18 11:13] VITALS: BP 134/50; PULSE 90
== END 2023-04-18 11:08 | disposition other institution (70) ==
LOC: EC 05:32
DX: K42.0 Umbilical hernia with obstruction, without gangrene (principal); D25.9 Leiomyoma of uterus, unspecified; F12.90 Cannabis use, unspecified, uncomplicated
CPT/HCPCS: 36415; 80053; 82150; 83605; 83690; 85025; 86140; 81001; 81025; 84703; 87040; 74177; 99285; 96365; 96375 ×3; 96376; 96361; J2543; J2270; J2405; J1885; Q9967